=== PATIENT | female | born 2000 ===

== ENCOUNTER 2024-03-06 08:25 | Emergency (ER) | payer MEDICAID ==
[~2024-03-06] VITALS: Ht 162.6 cm; Wt 68.0 kg
[2024-03-06 08:31] VITALS: O2SAT 100
[2024-03-06] MEDS ORDERED: DICYCLOMINE 10 MG/5 ML ORAL SYR PO STA (09:26)
[2024-03-06] MEDS: SODIUM CHLORIDE 0.9% 1,000 ML IV ONE (09:37)
[2024-03-06] MEDS: ONDANSETRON HCL 4MG/2ML INJ IV STA (09:38)
[2024-03-06 09:47] LABS: HEMATOCRIT. 40.1 % (36.0-48.0); HEMOGLOBIN. 13.7 g/dL (12.0-16.0); MEAN CORPUSCULAR HEMOGLOBIN 31.9 pg (28.0-32.0); MEAN CORPUSCULAR HGB CONC 34.1 g/dL (31.0-37.0); MEAN CORPUSCULAR VOLUME 93.7 fL (81.0-99.0); MEAN PLATELET VOLUME 7.5 fl (7.4-10.4); PLATELET 309 x1000/uL (130-400); RED BLOOD CELL COUNT 4.27 mill/uL (4.2-5.4); WHITE BLOOD COUNT 11.3 x1000/uL (4.5-11.0)
[2024-03-06 09:55] LABS: CHLORIDE 104 mEq/L (98-107); POTASSIUM 3.1 mEq/L (3.5-5.1); SODIUM 140 mEq/L (136-145)
[2024-03-06 09:56] LABS: CARBON DIOXIDE 26 mEq/L (21-32)
[2024-03-06 09:57] LABS: CALCIUM 10.1 mg/dL (8.7-10.4)
[2024-03-06 10:01] LABS: CREATININE 0.9 mg/dL (0.6-1.0); GLUCOSE 114 mg/dL (70-105)
[2024-03-06 10:02] LABS: UREA NITROGEN BLOOD 17 mg/dL (9-23)
[2024-03-06 10:03] LABS: ALANINE AMINOTRANSFERASE 24 IU/L (10-49); ASPARTATE AMINOTRANSFERASE 20 IU/L (<34)
[2024-03-06] MEDS: FAMOTIDINE 20MG/2ML VIAL IV STA (10:03)
[2024-03-06 10:04] LABS: BILIRUBIN DIRECT 0.3 mg/dL (<=3.0); BILIRUBIN TOTAL 0.8 mg/dL (0.1-1.0)
[2024-03-06] MEDS: KETOROLAC 30MG/ML VIAL IV STA (10:04)
[2024-03-06] MEDS: MAGNESIUM/ALUMINUM HYDROXIDE/SIMETHICONE 30ML UDC PO STA (10:05)
[2024-03-06] MEDS: DICYCLOMINE HCL 10MG CAPSULE PO NR (10:05)
[2024-03-06 10:26] LABS: DIFFERENTIAL COMMENT 1
[2024-03-06 10:51] LABS: PROTHROMBIN TIME 11.5 sec (9.6-11.0)
[2024-03-06] MEDS ORDERED: TOPUD PO (11:12)
[2024-03-06] MEDS ORDERED: ONDA4TAB50 PO (11:12)
[2024-03-06 11:29] VITALS: BP 123/68; PULSE 60; RESP 16; TEMP 36.8; O2SAT 100
[2024-03-06 13:10] LABS: PLATELET ESTIMATE NORMAL
== END 2024-03-06 11:30 | disposition home or self-care (01) ==
LOC: ER 08:25
DX: R11.2 Nausea with vomiting, unspecified (principal); R19.7 Diarrhea, unspecified; E87.6 Hypokalemia
CPT/HCPCS: 80076; 80048; 83690; 85025; 85610; 36415; 96361; 96374; 96375; 99284; J3490; J1885; J2405; J7030; Z7610 ×3; A4606